=== PATIENT | male | born 1980 | race African-American/Black ===

== ENCOUNTER 2019-02-28 17:04 | Emergency (ER) | payer SELFPAY ==
[~2019-02-28] VITALS: Ht 188 cm; Wt 86.0 kg
[2019-02-28 18:02] LABS: EOSINOPHILS % 1.7 % (0.0-5.0); HEMATOCRIT. 31.5 % (42.0-52.0); HEMOGLOBIN. 10.4 g/dL (14.0-18.0); LYMPHOCYTES % 65.8 % (20.0-50.0); MEAN CORPUSCULAR HEMOGLOBIN 31.7 pg (28.0-32.0); MEAN CORPUSCULAR VOLUME 95.7 fL (80.0-94.0); MEAN PLATELET VOLUME 8.3 fl (7.4-10.4); MONOCYTES % 4.9 % (2.0-8.0); NEUTROPHILS % 26.6 % (40.0-76.0); PLATELET 206 x1000/uL (130-400); RED BLOOD CELL COUNT 3.29 mill/uL (4.7-6.1); RED CELL DISTRIBUTION WIDTH 14.5 % (11.6-14.6)
[2019-02-28 18:08] LABS: CHLORIDE 104 mEq/L (98-107)
[2019-02-28 18:20] VITALS: BP 118/75
[2019-02-28 18:32] LABS: ETHANOL BLOOD 339 mg/dL
== END 2019-02-28 18:30 | disposition home or self-care (01) ==
LOC: ER 17:04
DX: F10.129 Alcohol abuse with intoxication, unspecified (principal); E11.9 Type 2 diabetes mellitus without complications; I10 Essential (primary) hypertension; Y90.9 Presence of alcohol in blood, level not specified
CPT/HCPCS: 36415; 80320; 99283; G0480